=== PATIENT | male | born 1985 | race Caucasian/White ===

== ENCOUNTER 2023-11-12 19:04 | Emergency (ER) | payer SELFPAY ==
[~2023-11-12] VITALS: Ht 167.6 cm; Wt 106.6 kg
[2023-11-12 19:54] LABS: COLLECTION METHOD CLEAN CATCH
[2023-11-12 19:57] LABS: BASO # 0.1 K/mm3 (0.0-0.2); BASO % 0.6 % (0.0-2.0); EOS # 0.2 K/mm3 (0.0-0.7); EOS % 2.7 % (0.0-4.0); GRAN # 4.5 K/mm3 (1.4-6.5); GRAN % 54.8 % (42.2-75.2); HEMATOCRIT 47.9 % (42.0-52.0); HEMOGLOBIN 16.9 g/dl (13.5-18.0); LYMPH # 2.9 K/mm3 (1.2-3.4); LYMPH % 34.9 % (20.0-51.0); MEAN CELL VOLUME 86 fl (80.0-100.0); MEAN CORPUSCULAR HEMOGLOBIN 31 pg (27-31); MEAN CORPUSCULAR HGB CONC 35 g/dl (33.0-37.0); MEAN PLATELET VOLUME 12.4 fl (7.4-10.4); MONO # 0.6 K/mm3 (0.1-0.6); MONO % 6.8 % (1.7-9.3); PLATELET COUNT 206 K/mm3 (130-400); RED BLOOD COUNT 5.55 M/mm3 (4.20-5.60); REDCELL DISTRIBUTION WIDTH-CV 11.9 % (11.5-14.5)
[2023-11-12 20:02] LABS: URINE APPEARANCE CLEAR (CLEAR/HAZY); URINE BLOOD NEGATIVE (NEGATIVE); URINE COLOR YELLOW (YELLOW); URINE GLUCOSE NEGATIVE (NEGATIVE); URINE KETONE NEGATIVE (NEGATIVE); URINE NITRATE NEGATIVE (NEGATIVE); URINE PROTEIN(semi-quant) NEGATIVE (NEGATIVE); URINE UROBILINOGEN 0.2 E.U/dL (0.2-1.0)
[2023-11-12 20:10] LABS: ALANINE AMINOTRANSFERASE 77 U/L (0-55); ALBUMIN 4.3 g/dL (3.5-5.0); ALKALINE PHOSPHATASE 96 U/L (40-150); ANION GAP 10 mmol/L (7-16); AST,SGOT 41 U/L (5-34); BILIRUBIN,TOTAL 0.7 mg/dL (0.2-1.2); BLOOD UREA NITROGEN 15 mg/dL (9-21); CALCIUM 12.2 mg/dL (8.4-10.2); CHLORIDE 105 mEq/L (98-107); CREATININE, serum 0.98 mg/dL (0.72-1.25); GLUCOSE 102 mg/dL (70-99); POTASSIUM 3.9 mEq/L (3.5-4.5); SODIUM 136 mEq/L (136-145)
[2023-11-12 20:16] LABS: TRICYCLIC ANTIDEPRESS URINE NEGATIVE (NEGATIVE)
[2023-11-12] MEDS ORDERED: SEROQUEL 2525 MG/TAB PO (20:16)
[2023-11-12] MEDS ORDERED: SEROQUEL 1100 MG/TAB PO (20:17)
[2023-11-12 20:19] LABS: ALCOHOL(ethanol),MEDICAL < 10 mg/dL (0-10); SALICYLATE < 5.0 mg/dL (15.0-30.0)
[2023-11-12] MEDS ORDERED: PRINZIDE 25 MG-1 TAB PO (20:20)
[2023-11-12] MEDS ORDERED: PRISTIQ 50 MG T50 MG PO (20:20)
[2023-11-12] MEDS ORDERED: ZOCOR 20MG20 MG PO (20:21)
[2023-11-13 05:58] VITALS: BP 120/96; PULSE 73; TEMP 97.3
== END 2023-11-13 06:00 ==
LOC: COL.ER 19:04
PROVIDERS: Nurse Practitioner
DX: R45.851 Suicidal ideations (principal)